=== PATIENT | female | born 1930 | race Two or more races ===

== ENCOUNTER 2017-08-07 08:17 | Day surgery (SDC) | payer MEDICARE, MEDICAID ==
[~2017-08-07] VITALS: Ht 152.4 cm; Wt 58.6 kg
[~2017-08-07 08:17] MED LIST: ONDA4TAB12 PO
[2017-08-07] MEDS ORDERED: LIDOcaine Viscous 15ml cup ONE (08:29)
[2017-08-07] MEDS ORDERED: fentaNYL/PF 50MCG/1 ML 2ML syringe ONE (08:29)
[2017-08-07] MEDS ORDERED: MIDAZolam 5mg/5ml vial ONE (08:29)
[2017-08-07] MEDS ORDERED: METO-411 PO (08:32)
[2017-08-07] MEDS ORDERED: OMEP20CA10 PO (08:33)
[2017-08-07] MEDS ORDERED: BENZ-38 PO (08:34)
[2017-08-07] MEDS ORDERED: AMLO5TAB PO (08:34)
[2017-08-07] MEDS ORDERED: OXYB5TAB11 PO (08:35)
[2017-08-07 08:42] VITALS: BP 129/56
[2017-08-07 09:25] VITALS: BP 150/71
[2017-08-07 09:35] VITALS: BP 135/55
[2017-08-07 09:45] VITALS: BP 125/66
[2017-08-07 09:55] VITALS: BP 138/59
== END 2017-08-07 10:05 | disposition home or self-care (01) ==
LOC: GI LAB 08:17
PROVIDERS: ATTEND Internal Medicine Gastroenterology
DX: K44.9 Diaphragmatic hernia without obstruction or gangrene (principal); K22.2 Esophageal obstruction; K20.8 Other esophagitis; K22.8 Other specified diseases of esophagus; I10 Essential (primary) hypertension; I25.2 Old myocardial infarction; M19.90 Unspecified osteoarthritis, unspecified site; Z90.49 Acquired absence of other specified parts of digestive tract; Z96.651 Presence of right artificial knee joint; Z88.6 Allergy status to analgesic agent; Z98.890 Other specified postprocedural states; Z79.899 Other long term (current) drug therapy
CPT/HCPCS: 43239; G0500; J2250; J3010; J7030; 88305; A4620

== ENCOUNTER 2020-12-10 13:43 | Inpatient (IN) | payer MEDICARE, MEDICAID ==
[~2020-12-10] VITALS: Ht 147.3 cm; Wt 56.8 kg
[~2020-12-10 13:43] MED LIST changes: +AMLO5TAB PO; +BENZ-38 PO; +METO-411 PO; +OMEP20CA15 PO; -ONDA4TAB12 PO; +OXYB5TAB16 PO
[2020-12-10 14:18] LABS: BASOPHILS % (AUTO) 0.9 % (0-1); EOSINOPHILS # (AUTO) 0.1 X10'3 (0-0.9); EOSINOPHILS % (AUTO) 2.2 % (0-6); HEMATOCRIT 38.2 % (35.0-45.0); HEMOGLOBIN 12.6 g/dl (12.0-16.0); LYMPHOCYTES # (AUTO) 1.1 X10'3 (1.1-4.8); LYMPHOCYTES % (AUTO) 20.6 % (21-51); MEAN CORPUSCULAR HEMOGLOBIN 31.3 PG (27.0-31.0); MEAN CORPUSCULAR VOLUME 94.6 FL (78-98); MEAN PLATELET VOLUME 8.1 FL (7.4-10.4); MONOCYTES # (AUTO) 0.3 X10'3 (0-0.9); MONOCYTES % (AUTO) 5.9 % (2-12); NEUTROPHILS # (AUTO) 3.8 X10'3 (1.8-7.7); NEUTROPHILS % (AUTO) 70.4 % (42-75); PLATELET COUNT 203 X10'3 (140-440); RED BLOOD COUNT 4.03 X10'6 (4.20-5.60); RED CELL DISTRIBUTION WIDTH 13.6 % (11.5-14.5); WHITE BLOOD COUNT 5.3 X10'3 (4.5-11.0)
[2020-12-10 14:35] LABS: ALANINE AMINOTRANSFERASE 30 U/L (12-78); ALBUMIN 3.2 G/DL (3.4-5.0); ALBUMIN/GLOBULIN RATIO 0.9 (1.1-1.5); ALKALINE PHOSPHATASE 113 IU/L (46-116); ANION GAP 8 (8-16); ASPARTATE AMINO TRANSFERASE 30 U/L (10-37); BILIRUBIN,TOTAL 0.5 MG/DL (0.1-1.0); BLOOD UREA NITROGEN 8 MG/DL (7-18); BUN/CREATININE RATIO 9.5 (6.6-38.0); CALCIUM 8.7 MG/DL (8.5-10.1); CHLORIDE 109 MMOL/L (99-107); CREATININE 0.84 MG/DL (0.40-0.90); GLUCOSE 101 MG/DL (70-104); POTASSIUM 4.1 MMOL/L (3.5-5.1); SODIUM 145 MMOL/L (135-145); TOTAL CARBON DIOXIDE 28.2 MMOL/L (24-32); TOTAL PROTEIN 6.8 G/DL (6.4-8.2); eGFR 64 ML/MIN
[2020-12-10] MEDS ORDERED: aspirin 325mg tablet PO ONE (15:05)
[2020-12-10] MEDS ORDERED: HYDROcodone/acetaminophen 5mg/325mg tablet PO ONE (15:35)
[2020-12-10] MEDS ORDERED: ondansetron 4mg rapidly disintigrating tab PO ONE (15:35)
[2020-12-10] MEDS ORDERED: enoxaparin 100mg/ml syringe SUBCUT ONE (17:05)
[2020-12-10] MEDS ORDERED: potassium Cl 20 mEq SR tablet PO PRN ×2 (17:25)
[2020-12-10] MEDS ORDERED: mag hydrox/Alum hydrox/simeth 30ml oral suspension PO PRN (17:25)
[2020-12-10] MEDS ORDERED: potassium Cl 40MEQ/1/2NS 520ml 520 ML IV PRN ×2 (17:25)
[2020-12-10] MEDS ORDERED: acetaminophen 325mg tablet PO PRN ×2 (17:25)
[2020-12-10] MEDS ORDERED: regadenoson 0.4mg/5ml syringe IV ONE (17:25)
[2020-12-10] MEDS ORDERED: magnesium 4gm in 100ml NS 100 ML IV PRN (17:25)
[2020-12-10] MEDS ORDERED: magnesium hydroxide 30ml (MOM) UD suspension PO PRN (17:25)
[2020-12-10] MEDS ORDERED: magnesium 2GM in 50ml NS 50 ML IV PRN (17:25)
[2020-12-10] MEDS ORDERED: magnesium Cl slow-release 64mg tablet PO PRN (17:25)
[2020-12-10] MEDS ORDERED: PERFLUTREN PROTEIN-A MICROSPHR (Optison) 0.22 MG/ML 3ML VIAL IV ONE (17:25)
[2020-12-10] MEDS ORDERED: nitroGLYCERIN 0.4mg SUBLingual tab SL PRN (17:25)
[2020-12-10] MEDS ORDERED: aminophylline 250mg/10ml inj. IV PRN (17:25)
[2020-12-10] MEDS ORDERED: metoprolol tartrate 1mg/ml inj IV PRN (17:25)
[2020-12-10] MEDS ORDERED: HYDR-3964 PO (17:27)
[2020-12-10] MEDS ORDERED: GUAI200T5 PO (17:27)
[2020-12-10] MEDS ORDERED: AMLO5TAB16 PO (17:27)
[2020-12-10] MEDS ORDERED: OMEP-50 PO (17:27)
[2020-12-10 18:11] LABS: D-DIMER 1.02 MG/L FEU (0-0.50)
[2020-12-10] MEDS: K and/or MAG REPLACEMENT MC SCH (19:37)
[2020-12-10] MEDS: normal saline 1000ml 1,000 ML IV SCH (19:37)
[2020-12-10] MEDS ORDERED: temazepam 15mg capsule PO PRN (21:00)
[2020-12-10] MEDS: heparin, porcine 5000 units/ml vial SQ SCH (21:26)
[2020-12-11] VITALS (10 sets, daily range): BP systolic 121–182; BP diastolic 38–73
[2020-12-11 02:13] LABS: BASOPHILS # (AUTO) 0.1 X10'3 (0-0.2); BASOPHILS % (AUTO) 1.2 % (0-1); EOSINOPHILS # (AUTO) 0.3 X10'3 (0-0.9); EOSINOPHILS % (AUTO) 5.6 % (0-6); HEMATOCRIT 33.9 % (35.0-45.0); HEMOGLOBIN 11.3 g/dl (12.0-16.0); LYMPHOCYTES # (AUTO) 1.8 X10'3 (1.1-4.8); LYMPHOCYTES % (AUTO) 36.7 % (21-51); MEAN CORPUSCULAR HEMOGLOBIN 32.2 PG (27.0-31.0); MEAN CORPUSCULAR HGB CONC 33.4 g/dL (33.0-36.5); MEAN CORPUSCULAR VOLUME 96.5 FL (78-98); MONOCYTES # (AUTO) 0.4 X10'3 (0-0.9); MONOCYTES % (AUTO) 7.7 % (2-12); NEUTROPHILS # (AUTO) 2.5 X10'3 (1.8-7.7); NEUTROPHILS % (AUTO) 48.8 % (42-75); PLATELET COUNT 197 X10'3 (140-440); RED BLOOD COUNT 3.52 X10'6 (4.20-5.60); RED CELL DISTRIBUTION WIDTH 13.6 % (11.5-14.5)
[2020-12-11 02:25] LABS: ALANINE AMINOTRANSFERASE 25 U/L (12-78); ALBUMIN 2.7 G/DL (3.4-5.0); ALBUMIN/GLOBULIN RATIO 0.8 (1.1-1.5); ALKALINE PHOSPHATASE 96 IU/L (46-116); ANION GAP 8 (8-16); ASPARTATE AMINO TRANSFERASE 25 U/L (10-37); BILIRUBIN,TOTAL 0.4 MG/DL (0.1-1.0); BLOOD UREA NITROGEN 11 MG/DL (7-18); CHLORIDE 108 MMOL/L (99-107); CREATININE 0.92 MG/DL (0.40-0.90); GLUCOSE 93 MG/DL (70-104); POTASSIUM 3.6 MMOL/L (3.5-5.1); SODIUM 143 MMOL/L (135-145); TOTAL CARBON DIOXIDE 26.9 MMOL/L (24-32); eGFR 58 ML/MIN
[2020-12-11 02:29] LABS: MAGNESIUM 2.2 MG/DL (1.5-2.4)
[2020-12-11] MEDS: K and/or MAG REPLACEMENT MC SCH ×2 (07:27→20:00)
[2020-12-11] MEDS: pantoprazole 40mg Tablet.DR PO SCH (07:40)
[2020-12-11] MEDS: heparin, porcine 5000 units/ml vial SQ SCH ×2 (07:42→21:44)
--- NOTE | 2020-12-11 08:00 | NUR ---
Patient in room ED 14. I have received report from NICOLETTE Parikh and had the opportunity to ask questions and awaiting pts arrival from ED.
--- NOTE | 2020-12-11 08:15 | NUR ---
Pt arrived from ED alert and orientedx4. Ambulated to bed from wheelchair. BLL, SRx2, CL within reach, non skid socks on, tele placed on pt. Vitals complete, MRSA swab complete.
--- NOTE | 2020-12-11 08:47 | NUR ---
Paged Dr Fabian PAGER ID: [phone] MESSAGE: Kai Nava [id number] Pt's family at bedside and would like to talk to you. Lorene Kamara [phone]
--- NOTE | 2020-12-11 10:23 | NUR ---
Mell Barraza Nurse Kai Nava [id number] Pt is going to have her Anai Scan done now. Thanks Lorene MORRIS
[2020-12-11] MEDS: HYDROcodone/acetaminophen 5mg/325mg tablet PO PRN (10:28)
[2020-12-11] MEDS ORDERED: LORazepam 2 mg/ml vial IV ONE (10:45)
[2020-12-11 12:49] LABS: CHOL/HDL RATIO 3.9 (0.00-4.99); CHOLESTEROL 164 MG/DL (0-200); HDL CHOLESTEROL 42 MG/DL (35-60); LDL CHOLESTEROL 113 MG/DL (50-100); TRIGLYCERIDES 112 MG/DL (20-135)
[2020-12-11] MEDS: aspirin 81mg tab.chew PO SCH (13:05)
[2020-12-11] MEDS ORDERED: atorvastatin 20mg tablet PO SCH (13:05)
[2020-12-11] MEDS: normal saline 1000ml 1,000 ML IV SCH (14:34)
--- NOTE | 2020-12-11 14:57 | NUR ---
Paged Dr Fabian PAGER ID: [phone] MESSAGE: Kai Nava [id number] Positive Anai Scan, Dr Kaur on floor and aware. Thanks Lorene Kamara [phone]
--- NOTE | 2020-12-11 16:27 | NUR ---
Paged Stefanie Zelaya, Liam Haynes [id number] Are you still here? Pt wants to go ahead with heart cath. Thanks Lorene [phone]
--- NOTE | 2020-12-11 18:00 | NUR ---
Patient in room PCU 3017. I have received report from Lorene WILL and had the opportunity to ask questions and assume patient care.
--- NOTE | 2020-12-11 18:10 | NUR ---
Problems reprioritized. Patient report given, questions answered & plan of care reviewed with NICOLETTE Rojas. Pt laying in bed sitting up eating dinner, family at bedside. All pt needs met at this time.
[2020-12-11] MEDS: metoprolol tartrate 12.5mg (1/2 tablet) PO SCH (20:11)
[2020-12-12] VITALS (14 sets, daily range): BP systolic 106–159; BP diastolic 43–74
[2020-12-12] MEDS ORDERED: LORazepam 2 mg/ml vial IV PRN (04:35)
--- NOTE | 2020-12-12 04:38 | NUR ---
PAGER ID: [phone] MESSAGE: [id number] LOFTON-SUPER ANXIOUS, WEEPING, SON CAME IN -HAS CATH PROCEDURE, AND SUPER ANXIOUS. CAN WE GET ATIVAN PER FAMILY REQUEST? SAM GARCIA [id number]
[2020-12-12] MEDS: normal saline 1000ml 1,000 ML IV SCH (05:00)
[2020-12-12] MEDS: HYDROcodone/acetaminophen 5mg/325mg tablet PO PRN (05:04)
[2020-12-12 06:45] LABS: EOSINOPHILS # (AUTO) 0.1 X10'3 (0-0.9); EOSINOPHILS % (AUTO) 2.6 % (0-6); HEMATOCRIT 34.3 % (35.0-45.0); HEMOGLOBIN 11.4 g/dl (12.0-16.0); LYMPHOCYTES # (AUTO) 1.2 X10'3 (1.1-4.8); LYMPHOCYTES % (AUTO) 29.1 % (21-51); MEAN CORPUSCULAR HEMOGLOBIN 32.2 PG (27.0-31.0); MEAN CORPUSCULAR HGB CONC 33.2 g/dL (33.0-36.5); MEAN CORPUSCULAR VOLUME 97.2 FL (78-98); MEAN PLATELET VOLUME 8.2 FL (7.4-10.4); MONOCYTES # (AUTO) 0.3 X10'3 (0-0.9); MONOCYTES % (AUTO) 7.2 % (2-12); NEUTROPHILS # (AUTO) 2.5 X10'3 (1.8-7.7); NEUTROPHILS % (AUTO) 60.1 % (42-75); PLATELET COUNT 191 X10'3 (140-440); RED BLOOD COUNT 3.53 X10'6 (4.20-5.60); RED CELL DISTRIBUTION WIDTH 13.5 % (11.5-14.5); WHITE BLOOD COUNT 4.2 X10'3 (4.5-11.0)
[2020-12-12 07:06] LABS: ALANINE AMINOTRANSFERASE 23 U/L (12-78); ALBUMIN 2.7 G/DL (3.4-5.0); ALBUMIN/GLOBULIN RATIO 0.8 (1.1-1.5); ALKALINE PHOSPHATASE 94 IU/L (46-116); ANION GAP 7 (8-16); ASPARTATE AMINO TRANSFERASE 24 U/L (10-37); BILIRUBIN,TOTAL 0.5 MG/DL (0.1-1.0); BLOOD UREA NITROGEN 10 MG/DL (7-18); BUN/CREATININE RATIO 11.8 (6.6-38.0); CALCIUM 8.4 MG/DL (8.5-10.1); CHLORIDE 108 MMOL/L (99-107); CREATININE 0.85 MG/DL (0.40-0.90); GLUCOSE 97 MG/DL (70-104); MAGNESIUM 2.2 MG/DL (1.5-2.4); SODIUM 142 MMOL/L (135-145); TOTAL CARBON DIOXIDE 27.2 MMOL/L (24-32); TOTAL PROTEIN 5.9 G/DL (6.4-8.2); eGFR 63 ML/MIN
[2020-12-12] MEDS ORDERED: verapamil 2.5 mg/ml inj IV ONE (07:43)
[2020-12-12] MEDS ORDERED: LIDOcaine 1% (10mg/ml)w/preservative injection 20ml MDV ONE (07:43)
[2020-12-12] MEDS ORDERED: midazolam 1 mg/ML 2ml injection ONE (07:43)
[2020-12-12] MEDS ORDERED: fentaNYL/PF 50MCG/1 ML 2ML syringe ONE (07:43)
[2020-12-12] MEDS ORDERED: nitroGLYCERIN-Tridil 50MG/D5W 250 ML IV ONE (07:43)
[2020-12-12] MEDS ORDERED: heparin 1,000unit/ml 10ml vial 10 ML ONE (07:44)
[2020-12-12] MEDS ORDERED: iohexol 350MG/ML 100ml bottle IV ONE (07:44)
[2020-12-12] MEDS ORDERED: iohexol 350 MG/ML 50ML vial IV ONE ×2 (07:44→08:46)
--- NOTE | 2020-12-12 07:50 | NUR ---
to superintendent [facility] aprox this time, family at bedside
[2020-12-12] MEDS ORDERED: LIDOcaine/PRILOcaine 5gm cream TP ONE (08:00)
[2020-12-12] MEDS: metoprolol tartrate 12.5mg (1/2 tablet) PO SCH ×2 (08:00→21:09)
[2020-12-12] MEDS: K and/or MAG REPLACEMENT MC SCH ×2 (08:00→20:00)
[2020-12-12] MEDS: ondansetron/PF 4mg/2ml inj IV PRN (09:52)
--- NOTE | 2020-12-12 10:50 | NUR ---
Aprox this time pt returned from cathlab. she has R radial band and R femstop in place. no hematoima or bleeding at either site. Radial has good pleth on monitor, cap refill quick. R foot warm, pinkl good cap refil- verified pulses laborer tanbark Nurse Josh to R foot with doppler - she has audible PT and very faint distant DP pulses. will cont to assess, pt deny any loss/change of senastion. daughter translating and pt is oriented to self, and confused to location- drowsy Addendum: 12/12/20 at 1103 by Werner Downs RN maintaining airway I
[2020-12-12] MEDS: isosorbide mononitrate 30mg tab.SR.24H PO SCH (11:15)
[2020-12-12] MEDS: pantoprazole 40mg Tablet.DR PO SCH (11:15)
[2020-12-12] MEDS: atorvastatin 20mg tablet PO SCH (11:15)
[2020-12-12] MEDS: aspirin 81mg tab.chew PO SCH (11:16)
--- NOTE | 2020-12-12 11:30 | NUR ---
released femstop device for 2 min per order. she had faint audible dp on doppler, strong PT on doppler. no bleeding, no hematoma, no c/o pain to back. admin oral meds and gisell well 1x1 with apple sauce
--- NOTE | 2020-12-12 13:32 | NUR ---
Femstop release for 2 min. R DP present on doppler and faint, PtT is clearly audible on doppler, cap refill brisk, normal color to toes and warm, no hematoma or bleeding to groin , deny back pain, no bruising. deny any change in sensation to foot. reinflated as ordered
--- NOTE | 2020-12-12 15:43 | NUR ---
Femstop removed at 1535. on re-check no signs of bleed . doppler pulses faint to DP and strong to PT. no hematoma, no bleeding noted. R radial cont. to be asymptomatic on q30 min checks also. Pt oriented to self and reoriented to location. Alert. deny SOB, no signs of discomfort or distress, has been sleeping between assessments today
[2020-12-12] MEDS ORDERED: normal saline 1000ml 1,000 ML IV ONE (17:25)
[2020-12-13] MEDS: ondansetron/PF 4mg/2ml inj IV PRN (00:44)
[2020-12-13 02:00] VITALS: BP 119/63
[2020-12-13 06:00] VITALS: BP 120/90
--- NOTE | 2020-12-13 06:15 | NUR ---
Problems reprioritized. Patient report given, questions answered & plan of care reviewed with BRYAN WILL.
[2020-12-13 06:26] LABS: EOSINOPHILS # (AUTO) 0.1 X10'3 (0-0.9); EOSINOPHILS % (AUTO) 2.3 % (0-6); HEMATOCRIT 30.9 % (35.0-45.0); HEMOGLOBIN 10.5 g/dl (12.0-16.0); LYMPHOCYTES # (AUTO) 1.2 X10'3 (1.1-4.8); LYMPHOCYTES % (AUTO) 24.5 % (21-51); MEAN CORPUSCULAR HEMOGLOBIN 32.1 PG (27.0-31.0); MEAN CORPUSCULAR HGB CONC 34.1 g/dL (33.0-36.5); MEAN CORPUSCULAR VOLUME 94.1 FL (78-98); MEAN PLATELET VOLUME 8.3 FL (7.4-10.4); MONOCYTES # (AUTO) 0.3 X10'3 (0-0.9); MONOCYTES % (AUTO) 7.3 % (2-12); NEUTROPHILS # (AUTO) 3.1 X10'3 (1.8-7.7); NEUTROPHILS % (AUTO) 64.9 % (42-75); PLATELET COUNT 176 X10'3 (140-440); RED BLOOD COUNT 3.28 X10'6 (4.20-5.60); RED CELL DISTRIBUTION WIDTH 13.2 % (11.5-14.5); WHITE BLOOD COUNT 4.7 X10'3 (4.5-11.0)
[2020-12-13 06:39] LABS: ALANINE AMINOTRANSFERASE 29 U/L (12-78); ALBUMIN 2.6 G/DL (3.4-5.0); ALBUMIN/GLOBULIN RATIO 0.9 (1.1-1.5); ALKALINE PHOSPHATASE 92 IU/L (46-116); ANION GAP 7 (8-16); ASPARTATE AMINO TRANSFERASE 41 U/L (10-37); BILIRUBIN,TOTAL 0.6 MG/DL (0.1-1.0); BLOOD UREA NITROGEN 8 MG/DL (7-18); BUN/CREATININE RATIO 8.6 (6.6-38.0); CHLORIDE 109 MMOL/L (99-107); CREATININE 0.93 MG/DL (0.40-0.90); GLUCOSE 82 MG/DL (70-104); MAGNESIUM 2.1 MG/DL (1.5-2.4); POTASSIUM 3.6 MMOL/L (3.5-5.1); SODIUM 143 MMOL/L (135-145); TOTAL CARBON DIOXIDE 27.4 MMOL/L (24-32); TOTAL PROTEIN 5.5 G/DL (6.4-8.2); eGFR 57 ML/MIN
--- NOTE | 2020-12-13 07:30 | NUR ---
Patient in room PCU 3020. I have received report from Crystal WILL and had the opportunity to ask questions and assume patient care.
[2020-12-13] MEDS: K and/or MAG REPLACEMENT MC SCH (08:00)
[2020-12-13] MEDS: metoprolol tartrate 12.5mg (1/2 tablet) PO SCH (08:00)
[2020-12-13] MEDS: aspirin 81mg tab.chew PO SCH (09:10)
[2020-12-13] MEDS: atorvastatin 20mg tablet PO SCH (09:11)
[2020-12-13] MEDS: isosorbide mononitrate 30mg tab.SR.24H PO SCH (09:11)
[2020-12-13] MEDS: pantoprazole 40mg Tablet.DR PO SCH (09:13)
[2020-12-13] MEDS ORDERED: METO-411 PO (09:56)
[2020-12-13] MEDS ORDERED: ATOR20TA66 PO (09:56)
[2020-12-13] MEDS ORDERED: ISOS30TA84 PO (09:56)
--- NOTE | 2020-12-13 11:50 | NUR ---
Patient safe for discharge per doctors orders. Medications and discharge instructions discussed with patient and family, with ability to ask questions and get answers. PIV discontinued cannula intact. Mobile discontinued. Belongings sent with patient. Wheeled to lobby via nursing staff. Went home in private vehicle with family.
== END 2020-12-13 11:50 | disposition home or self-care (01) | DRG 282 ==
LOC: ER 13:44 → UNDOADMIN 17:22 → ED HOLD 17:22 → PCU 3S 12-11 09:10
PROVIDERS: ADMIT Internal Medicine; ATTEND Internal Medicine
PROC: 4A02XM4 Measurement of Cardiac Total Activity, External Approach (ICD-10-PCS; 2020-12-10)
PROC: 3E073KZ Introduction of Other Diagnostic Substance into Coronary Artery, Percutaneous Approach (ICD-10-PCS; 2020-12-10)
PROC: 4A023N7 Measurement of Cardiac Sampling and Pressure, Left Heart, Percutaneous Approach (ICD-10-PCS; principal; 2020-12-12)
PROC: B2111ZZ Fluoroscopy of Multiple Coronary Arteries using Low Osmolar Contrast (ICD-10-PCS; 2020-12-12)
PROC: B2151ZZ Fluoroscopy of Left Heart using Low Osmolar Contrast (ICD-10-PCS; 2020-12-12)
DX: I21.4 Non-ST elevation (NSTEMI) myocardial infarction (principal); I10 Essential (primary) hypertension; M48.00 Spinal stenosis, site unspecified; K21.9 Gastro-esophageal reflux disease without esophagitis; K44.9 Diaphragmatic hernia without obstruction or gangrene; E78.5 Hyperlipidemia, unspecified; Z20.822 Contact with and (suspected) exposure to COVID-19; F41.9 Anxiety disorder, unspecified; Z96.652 Presence of left artificial knee joint; I44.7 Left bundle-branch block, unspecified; I25.10 Atherosclerotic heart disease of native coronary artery without angina pectoris; I34.0 Nonrheumatic mitral (valve) insufficiency; Z79.82 Long term (current) use of aspirin; Z87.891 Personal history of nicotine dependence; Z91.14 Patient's other noncompliance with medication regimen; Z91.19 Patient's noncompliance with other medical treatment and regimen; Z88.5 Allergy status to narcotic agent; Z79.899 Other long term (current) drug therapy; Z98.49 Cataract extraction status, unspecified eye; Z90.49 Acquired absence of other specified parts of digestive tract
CPT/HCPCS: 36415; 71045; 76937; 78452; 80053; 80061; 82948; 83735; 83880; 84484; 85025; 85379; 87081; 87635; 93005; 93017; 93306; 93458; 97161; 97530; 99152; 99153; 99285; A5120; A9500; C1760; C1769; C1894; G0378; J1644; J1650; J2001; J2060; J2250; J2405; J2785; J3010; J3490; J7030; Q9967